=== PATIENT | female | born 1975 | race Two or more races ===

== ENCOUNTER 2017-06-15 14:28 | Day surgery (SDC) | payer OTHER ==
[2017-06-12 16:40] VITALS: BMI 32.5
[~2017-06-15] VITALS: Ht 154.9 cm; Wt 79.0 kg
[2017-06-15] VITALS (17 sets, daily range): BP systolic 90–117; BP diastolic 40–80; PULSE 66–92; RESP 13–21; Ht 154.9 cm; Wt 79.0 kg
[~2017-06-15 14:28] MED LIST: CEFAZOLIN 1 GM INJ ONE; CEFAZOLIN 2 GM/50 ML (PMX) 50 ML IVPB ONE; SOD CHLORIDE 0.9% 1,000 ML IV SCH
--- NOTE | 2017-06-15 19:20 | HPN ---
Date/Time of Note Date/Time of Note DATE: 06/15/17 TIME: 19:20 Interval H&P Admission Note Pt. seen H&P reviewed: No system changes SABRINA XAVIER MD Jun 15, 2017 19:20
[2017-06-15] MEDS ORDERED: BUPIVACAINE 0.25% (MPF) 30 ML INJ ONE (19:45)
[2017-06-15] MEDS ORDERED: BUPIVACAINE 0.25%/EPI (SDV) 30 ML INJ ONE (19:50)
[2017-06-15] MEDS ORDERED: DIPHENHYDRAMINE 50 MG INJ IV PRN (20:00)
[2017-06-15] MEDS ORDERED: ALBUTEROL 0.083% (NEB) 2.5 MG/3 ML AMP HHN ONE (20:00)
[2017-06-15] MEDS ORDERED: ONDANSETRON 4 MG INJ IV PRN ×2 (20:00→21:30)
[2017-06-15] MEDS ORDERED: HYDROmorphONE (0.2 MG/ML) 10ML SYG IV PRN ×2 (20:00)
[2017-06-15] MEDS ORDERED: METOCLOPRAMIDE 10 MG INJ IV PRN (20:00)
[2017-06-15] MEDS ORDERED: MEPERIDINE 25 MG INJ IV PRN (20:00)
[2017-06-15] MEDS ORDERED: FENTAnyl 50 MCG/ML VIAL IV PRN (20:00)
[2017-06-15] MEDS ORDERED: FENTAnyl 50 MCG/ML VIAL ONE ×2 (20:03→21:25)
[2017-06-15] MEDS ORDERED: ROPIVACAINE 0.5 % 30 ML VIAL ONE (20:17)
[2017-06-15] MEDS ORDERED: ROCURONIUM 50 MG INJ ONE (20:17)
[2017-06-15] MEDS ORDERED: PROPOFOL 20 ML ONE (20:17)
[2017-06-15] MEDS ORDERED: LIDOCAINE 2% (SDV) 5 ML INJ ONE (20:17)
[2017-06-15] MEDS ORDERED: SUCCINYLCHOLINE CHLORIDE 100 MG/5 ML SYG IV ONE (20:17)
[2017-06-15] MEDS ORDERED: SUGAMMADEX SODIUM 200 MG/2 ML VIAL IV ONE (20:18)
--- NOTE | 2017-06-15 21:24 | OPR ---
Date/Time of Note Date/Time of Note DATE: 06/15/17 TIME: 21:19 Operative Report Procedure Date: Jun 15, 2017 Preoperative Diagnosis Cholelithiasis/chronic cholecystitis Postoperative Diagnosis Cholelithiasis/chronic cholecystitis Operation Performed Laparoscopic cholecystectomy Surgeon: SABRINA XAVIER MD Anesthesia: general Anesthesiologist: EVA YEN Estimated Blood Loss: minimal Specimens Gallbladder Complications: None Pt Condition Post Procedure: stable Disposition: PACU Indications The patient is a 41-year-old female with a history of a LAP-BAND who presented to the office with right upper quadrant abdominal pain. The patient had clinical signs and symptoms of chronic cholecystitis and biliary colic which was confirmed via an ultrasound which showed the presence of gallstones without acute cholecystitis. The patient was scheduled for laparoscopic cholecystectomy ; possible open as definitive treatment to prevent further sequelae of gallstone disease which include but are not limited to: Gangrenous cholecystitis , choledocholithiasis, gallstone pancreatitis, ascending cholangitis, etc. All risks and benefits of the procedure including but not limited to: Wound infection, excessive bleeding, common bile duct injury, postoperative biliary leak, retained common bile duct stone, injury to intra-abdominal organs, conversion to open procedure, possible need for subsequent surgeries, etc. were all explained to the patient in full detail. She fully understood and wished to proceed with the procedure. Informed consent was therefore obtained. Operative\Procedure Findings Findings consistent with chronic cholecystitis. Large stone within the gallbladder neck. Procedure Description The patient was brought to the operating room and placed supine on the operating table. Bilateral sequential compression devices were placed on both lower extremities. A dose of broad-spectrum perioperative intravenous antibiotics was given. After the induction of smooth general endotracheal anesthesia the patient's abdomen was prepped and draped in the standard surgical fashion. After performance of the surgical timeout a 5 mm incision was made in the inferior umbilicus and a Veress needle was used to access the intra- abdominal cavity atraumatically. Pneumoperitoneum was then obtained and the Veress needle was exchanged for a 5 mm trocar through which a 5 mm laparoscope was placed. Three further working ports were then placed a 12 mm port in the sub -xiphoid region and two 5 mm ports in the right upper quadrant. All port sites were anesthetized with 0.25% Marcaine with epinephrine prior to incision. The LAP-BAND device was identified intra-abdominally. The port was located in the right upper quadrant. Care was taken to avoid the port during trocar placement. Using atraumatic graspers the gallbladder was grasped and retracted superiorly and laterally exposing the area of Mendoza's pouch. Dissection was begun in this area using a combination of blunt dissection and hook electrocautery. The cystic duct was identified as it entered straight into the neck of the gallbladder. It was dissected free of surrounding tissues and clipped proximally and distally x 3 and transected using EndoShears. Dissection was then continued posteriorly. The cystic artery was identified and dissected free of surrounding tissues. It too was clipped proximally and distally x 2 and transected using electrocautery. The gallbladder was then dissected off the liver bed using electrocautery. Once completely free the gallbladder was placed in an Endo Catch bag and withdrawn through the subxiphoid port site and passed off the field as specimen. Subxiphoid port site needed to be enlarged to accommodate the large stone within the gallbladder. Hemostasis was then inspected for and noted to be total. The abdomen was then irrigated with several liters of warm normal saline and the irrigant returned crystal clear. The fascia of the subxiphoid port site was then reapproximated using a Endo- close device and 0 Vicryl suture. Pneumoperitoneum was then released and all remaining trochars were withdrawn under direct vision. The subcutaneous tissues were irrigated with more warm normal saline and further local anesthesia was applied around the skin of the incision sites. The skin was then reapproximated using 4-0 Monocryl sutures in subcuticular fashion. The incisions were cleaned and Dermabond was applied to the incisions and the patient was awoken from anesthesia and transported to the recovery room in stable condition. All counts were correct at the end of the case x 2. SABRINA XAVIER MD Jun 15, 2017 21:24
[2017-06-15] MEDS ORDERED: KETOROLAC 30 MG INJ IV PRN (21:30)
[2017-06-15] MEDS ORDERED: morphine 2 MG INJ IV PRN (21:30)
[2017-06-15] MEDS ORDERED: HYDROCODONE/APAP (5/325) TAB PO PRN ×2 (21:30)
[2017-06-15] MEDS ORDERED: IBUPROFEN 600 MG TAB PO PRN (21:30)
[2017-06-15] MEDS: HYDROmorphONE (0.2 MG/ML) 10ML SYG IV PRN ×4 (21:32→22:12)
[2017-06-15] MEDS: FENTAnyl 50 MCG/ML VIAL IV PRN ×2 (21:41→22:07)
[2017-06-15] MEDS ORDERED: HYDROCODONE/APAP (5/325) TAB PO ONE (22:00)
== END 2017-06-15 23:27 | disposition home or self-care (01) ==
LOC: SDS 14:28
PROVIDERS: ATTEND Surgery
DX: K80.10 Calculus of gallbladder with chronic cholecystitis without obstruction (principal)
CPT/HCPCS: 47562; 88304; 94664; J0690; J1170; J1885; J2175; J2765; J2795; J3010; J7999; Z7512; Z7610